=== PATIENT | female | born 1990 | race Caucasian/White ===

== ENCOUNTER → 2019-02-07 | Emergency (ER) | payer OTHER ==
[~2019-02-07] VITALS: Ht 154.9 cm; Wt 59.0 kg
[~2019-02-07] MED LIST: ADVIL100 M1; INTESTINEX680 M1 PO; OMEPRAZOLE MAGN20 MG PO; ZOFRAN8 MG PO; augmentin PO
== END | disposition home or self-care (01) ==
LOC: ER 16:24
DX: J02.8 Acute pharyngitis due to other specified organisms (principal); B34.9 Viral infection, unspecified; R11.2 Nausea with vomiting, unspecified; E86.0 Dehydration

== ENCOUNTER 2021-07-05 19:55 | Emergency (ER) | payer OTHER ==
[~2021-07-05] VITALS: Ht 152.4 cm; Wt 62.6 kg
== END 2021-07-05 23:49 | disposition home or self-care (01) ==
LOC: ER 19:55
DX: J10.1 Influenza due to other identified influenza virus with other respiratory manifestations (principal); Z20.822 Contact with and (suspected) exposure to COVID-19; R11.10 Vomiting, unspecified; E86.0 Dehydration